=== PATIENT | male | born 1955 | race African-American/Black ===

== ENCOUNTER 2022-05-13 14:29 | Emergency (ER) | payer MEDICARE, MEDICAID ==
[~2022-05-13] VITALS: Ht 167.6 cm; Wt 73.0 kg
[2022-05-13 15:14] VITALS: BP 157/100
[2022-05-13 16:23] LABS: BASOPHILS % 0.5 % (0.0-2.0); EOSINOPHILS % 3.3 % (0.0-5.0); HEMOGLOBIN. 13.5 g/dL (14.0-18.0); LYMPHOCYTES % 34.4 % (20.0-50.0); MEAN CORPUSCULAR HEMOGLOBIN 32.9 pg (28.0-32.0); MEAN CORPUSCULAR VOLUME 97.7 fL (80.0-94.0); MEAN PLATELET VOLUME 7.7 fl (7.4-10.4); MONOCYTES % 11.1 % (2.0-8.0); NEUTROPHILS % 50.7 % (40.0-76.0); PLATELET 269 x1000/uL (130-400); RED CELL DISTRIBUTION WIDTH 14.1 % (11.6-14.6)
[2022-05-13 16:33] LABS: CHLORIDE 108 mEq/L (98-107)
[2022-05-13 19:25] LABS: PARTIAL THROMBOPLASTIN TIME 27.6 sec (23.4-31.0); PROTHROMBIN TIME 10.3 sec (9.6-11.0)
[2022-05-13 20:29] LABS: CLARITY URINE CLEAR (CLEAR); COLOR URINE YELLOW (YELLOW); KETONES URINE TRACE (NEGATIVE); LEUKOCYTE ESTERASE URINE NEGATIVE (NEGATIVE); NITRITE URINE NEGATIVE (NEGATIVE); OCCULT BLOOD URINE NEGATIVE (NEGATIVE); PH URINE 6.5 (4.5-8.0); PROTEIN URINE NEGATIVE (NEGATIVE); SPECIFIC GRAVITY URINE 1.021 (1.005-1.030); UROBILINOGEN URINE 0.2 E.U./dL (0.2-1.0)
[2022-05-13] MEDS ORDERED: CIPR-263 MT (22:05)
[2022-05-13] MEDS ORDERED: METR375C2 MT (22:05)
== END 2022-05-13 21:50 | disposition home or self-care (01) ==
LOC: ER 14:29
DX: K74.60 Unspecified cirrhosis of liver (principal); R18.8 Other ascites; K70.9 Alcoholic liver disease, unspecified
CPT/HCPCS: 36415; 74176; 80053; 80320; 81003; 82140; 85025; 99284; G0480